=== PATIENT | female | born 1955 | race Caucasian/White ===

== ENCOUNTER → 2016-10-31 | Day surgery (SDC) | payer BC ==
[~2016-10-31] MED LIST: BUPIVACAINE/EPINEPHRINE 0.25% 50 ML VIAL ONE; DIAB1.25 PO; GLUCTAB PO; IBUP-238 PO; ISOSULFAN BLUE 50 MG/5 ML VIAL SQ ONE; KETOROLAC TROMETHAMINE 30 MG/ML (IVP) VIAL IV PUSH ONE; LACTATED RINGER'S 1000 ML INJ 1,000 ML ONE; MIDAZOLAM HCL 2 MG/2 ML VIAL ONE; ONDANSETRON HCL 4 MG/2 ML VIAL IV PUSH ONE; PRAV10 PO; PROPOFOL 200 MG/20 ML AMP IV ONE; ceFAZolin 2 GM PREMIX 50 ML ONE
--- NOTE | 2016-10-31 16:06 | TN ---
cc: CASH WINN M.D. DATE OF SURGERY 10/31/2016 PREOPERATIVE DIAGNOSIS Left breast cancer. POSTOPERATIVE DIAGNOSIS Left breast cancer. PROCEDURE PERFORMED 1. Needle-localized left breast lumpectomy. 2. Injection excision left axillary sentinel node. SURGEON Cash Winn MD ANESTHESIA General LMA COMPLICATIONS None. INDICATION Ms. Minaya is a very pleasant 61-year-old female who was noted to have mammographic abnormality in the left breast. She underwent percutaneous biopsy and this was found to be a left breast cancer. By imaging it measured about 11 mm. She underwent MRI which showed no additional lesions and no significant adenopathy. She was seen back in the office. She was offered needle-localized lumpectomy versus mastectomy. The patient elected to have lumpectomy. Risks and benefits of procedure were discussed and she was agreeable. INTRAOPERATIVE FINDINGS [place] node was localized in the left axilla. It was found have a 10-second count of 1466. DETAILS The patient was identified, brought to the operating room and placed supine on the operating table. After adequate general anesthesia was achieved with LMA, the anterior left chest and breast and axilla were prepped and draped in standard surgical fashion. 10 cc of isosulfan blue was injected in the periareolar position as well as along the wire localization in the upper outer quadrant of the left breast. Attention was first directed to the left axilla. Approximate location of the sentinel node was identified with the probe. 0.25% Marcaine was injected and transverse incision was made. Dissection proceeded down through subcutaneous tissue into the axilla proper. Immediately we encountered an enlarged node with some blue channels going to it and a small amount of blue dye within the node. This was found have significant activity with the probe. It is grasped with Allis clamp and excised with surrounding rim of healthy fatty tissue. This was labeled sentinel node one. It was found have a 10-second count of 1466 ex vivo. Once we did this the axilla was checked and there was no activity whatsoever with the probe. By direct visualization I could not appreciate any other blue channels or blue dye. By direct palpation I could not palpate any adenopathy. At this point I felt comfortable we had good sampling of the dylan area. The fatty tissue around the node was also excised and sent as a specimen. The wound was copiously irrigated with normal saline solution. Wound was then injected and 10 cc of 0.25% Marcaine. The wound was then closed in two layers using 3-0 and 4-0 Vicryl. Next attention was directed to the left breast. The patient had a wire localization of the upper outer quadrant of the left breast. 0.25% Marcaine was injected in the periareolar position. We then did a periareolar incision from about 12 o'clock to 3 o'clock. Subcutaneous skin flaps were then raised cephalad and laterally to the wire. Generous margins of breast tissue was then dissected around the wire all the way to its base. The wire was then cut and the specimen excised and inspected. The wire was found be in the central portion of the specimen with good gross margins in all directions. A short stitch was placed superior, a long stitch was placed lateral and the specimen was sent to radiology where Dr. Guzman performed an ultrasound confirming the mass to be present within the specimen. Wound was then irrigated with normal saline solution. Wound was infiltrated 20 mL of 0.25% Marcaine. Wound was then closed in two layers using 3-0 and 4-0 Vicryl. Sterile dressings were applied. The patient was awakened, brought to recovery in stable condition. MD VIVI Gregorio/KARTHIK /1:50 PM /3:54 PM
== END | disposition home or self-care (01) ==
LOC: ESDC 07:15
PROVIDERS: ATTEND Surgery Trauma Surgery
DX: C50.912 Malignant neoplasm of unspecified site of left female breast (principal)
CPT/HCPCS: 00400; 01610; 19125; 38525; 38792; 88305; 88307; 88309; J0690; J1885; J2250; J2405; J3010; J7120; Q9968